=== PATIENT | female | born 1955 | race Caucasian/White ===

== ENCOUNTER 2018-09-08 10:12 | Emergency (ER) | payer OTHER ==
[~2018-09-08] VITALS: Ht 157.5 cm; Wt 54.6 kg
[~2018-09-08 10:12] MED LIST: IBUP800T48 PO
[2018-09-08 10:13] VITALS: BP 144/86; PULSE 85; RESP 14; Ht 157.5 cm; Wt 54.6 kg
[2018-09-08] MEDS ORDERED: IBUPROFEN 800 MG TAB PO ONE (11:00)
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
== END 2018-09-08 12:07 | disposition home or self-care (01) ==
LOC: FTE 10:12
DX: M54.5 Low back pain (principal); M54.2 Cervicalgia; M54.6 Pain in thoracic spine
CPT/HCPCS: 72040; 72072; 72100